=== PATIENT | female | born 1985 | race Caucasian/White ===

== ENCOUNTER 2019-01-11 10:22 | Emergency (ER) | payer BC ==
[2019-01-11 10:39] VITALS: BP 158/107
--- NOTE | 2019-01-11 10:52 | ED ---
Back Pain - HPI Summary HPI Summary: 33 year old female presents with back pain today after fall. States she slipped on ice. She landed on her right hip. States she has pain of her back and down her right leg. No history of back pain. No urinary symptoms. No loss of bowel or bladder. no saddle anaesthesia She denies any fever. She hasn't taking anything for pain. Has no medical conditions. - History of Current Complaint Chief Complaint: UCBackPain Stated Complaint: fell today know has backpain Time Seen by Provider: 01/11/19 10:39 Hx Last Menstrual Period: 01/11/19 Pain Intensity: 8 - Allergies/Home Medications Allergies/Adverse Reactions: Allergies Allergy/AdvReac Type Severity Reaction Status Date / Time doxycycline Allergy Hives Verified 01/11/19 10:31 sulfamethoxazole Allergy See Comment Verified 01/11/19 10:31 [From Bactrim] trimethoprim [From Bactrim] Allergy See Comment Verified 01/11/19 10:31 Home Medications: Home Medications Cariprazine HCl [Vraylar] 3 mg PO BEDTIME 01/11/19 [History Confirmed 01/11/19] Ibuprofen TAB* [Motrin TAB* 400 MG] 400 mg PO ONCE 01/11/19 [History Confirmed 01/11/19] LORazepam TAB(*) [Ativan 0.5 MG TAB (*)] 0.5 mg PO BEDTIME PRN 01/11/19 [ History Confirmed 01/11/19] Vortioxetine Hydrobromide [Brintellix] 20 mg PO BEDTIME 01/11/19 [History Confirmed 01/11/19] hydrOXYzine HCL TAB* [Atarax 10 MG TAB*] 10 mg PO BEDTIME 01/11/19 [History Confirmed 01/11/19] PMH/Surg Hx/FS Hx/Imm Hx Endocrine/Hematology History: Denies: Hx Diabetes, Hx Thyroid Disease Cardiovascular History: Denies: Hx Hypertension Respiratory History: Denies: Hx Asthma, Hx Chronic Obstructive Pulmonary Disease (COPD) GI History: Denies: Hx Ulcer Psychiatric History: Reports: Hx Anxiety - Surgical History Surgery Procedure, Year, and Place: [facility]. kidney stone removal - Immunization History Date of Tetanus Vaccine: unk Infectious Disease History: No Infectious Disease History: Denies: Hx Clostridium Difficile, Hx Hepatitis, Hx Human Immunodeficiency Virus (HIV), Hx of Known/Suspected MRSA, Hx Shingles, Hx Tuberculosis, Traveled Outside the [place] in Last 30 Days - Family History Known Family History: Negative: Renal Disease - Social History Alcohol Use: None Substance Use Type: Reports: None Smoking Status (MU): Never Smoked Tobacco Amount Used/How Often: 1/2 - 1 PPD Have You Smoked in the Last Year: No Review of Systems Negative: Fever Negative: Chest Pain Negative: Shortness Of Breath Positive: Myalgia - back pain All Other Systems Reviewed And Are Negative: Yes Physical Exam Triage Information Reviewed: Yes Vital Signs On Initial Exam: Initial Vitals Temp Pulse Resp BP Pulse Ox 99.2 F 86 20 158/107 100 01/11/19 10:34 01/11/19 10:34 01/11/19 10:34 01/11/19 10:34 01/11/19 10:34 Vital Signs Reviewed: Yes Appearance: Positive: Well-Appearing Skin: Positive: Warm, Dry Head/Face: Positive: Normal Head/Face Inspection Eyes: Positive: Normal, Conjunctiva Clear ENT: Positive: Pharynx normal Respiratory/Lung Sounds: Positive: Clear to Auscultation, Breath Sounds Present Cardiovascular: Positive: Normal, RRR Musculoskeletal: Positive: Strength/ROM Intact - back, Other - tenderness right side lower back, neg SLR, good pulses, nontender neck and thoracic back Neurological: Positive: Normal Psychiatric: Positive: Normal Diagnostics - Vital Signs Vital Signs Temp Pulse Resp BP Pulse Ox 01/11/19 10:34 99.2 F 86 20 158/107 100 - Laboratory Lab Statement: Any lab studies that have been ordered have been reviewed, and results considered in the medical decision making process. - Radiology back Radiology Interpretation Completed By: Radiologist Summary of Radiographic Findings: IMPRESSION: 1. Mild L5-S1 facet arthropathy. 2. Premature mild atherosclerotic calcification of the abdominal aorta. Back Pain Course/Dx - Course Course Of Treatment: 33 year old female presents with back pain today after fall. States she slipped on ice. She landed on her right hip. States she has pain of her back and down her right leg. No history of back pain. No urinary symptoms. No loss of bowel or bladder. no saddle anaesthesia She denies any fever. She hasn't taking anything for pain. Has no medical conditions. On exam tenderness over right lower back. Negative straight leg raise. X-ray shows no fracture. Explained leg pain is likely due to hitting the sciatic nerve. Told to use muscle relaxers and ibuprofen. Told to follow up primary about blood pressure as is elevated at this time and may need cholesterol checked with calcification of aorta. Patient understands agrees plan. - Diagnoses Differential Diagnosis/HQI/PQRI: Positive: Fracture, Strain, Sprain Provider Diagnoses: Back pain, Elevated blood pressure reading Discharge ED - Sign-Out/Discharge Documenting (check all that apply): Patient Departure All imaging exams completed and their final reports reviewed: Yes - Discharge Plan Condition: Good Disposition: HOME Prescriptions: Cyclobenzaprine TAB* [Flexeril 10 MG TAB*] 10 mg PO TID PRN #[id number] tab PRN Reason: Pain - Moderate Patient Education Materials: Back Pain (ED) Referrals: Geoff Lepe MD [Primary Care Provider] - Additional Instructions: Take muscle relaxers three times a day Use ibuprofen or Tylenol for pain every 6 hours ice/heat area, move as much as possible Follow up with primary within 5 days Return to ED if develop any new or worsening symptoms - Billing Disposition and Condition Condition: GOOD Disposition: Home
== END 2019-01-11 11:36 | disposition home or self-care (01) ==
LOC: UCEAST 10:22
DX: M54.9 Dorsalgia, unspecified (principal); R03.0 Elevated blood-pressure reading, without diagnosis of hypertension; I70.0 Atherosclerosis of aorta; M12.88 Other specific arthropathies, not elsewhere classified, other specified site; Z88.1 Allergy status to other antibiotic agents; Z88.2 Allergy status to sulfonamides
CPT/HCPCS: 72110; 99202; G0463

== ENCOUNTER 2019-02-19 10:30 | Emergency (ER) | payer BC ==
--- NOTE | 2019-02-19 10:55 | UC ---
Hypertension HPI - HPI Summary HPI Summary: The patient is a 33-year-old female who is sent here from her place of employment for evaluation of an elevated blood pressure. She states that she has not been feeling well since last night. She has had an intermittent left sided headache. She has never had a hemicranial headache before. The headache has been coming and going. It has not been overly severe. It is not the worst headache of her life. It can last up to 2 hours. Twice she has had very brief episodes of visual complaints. She states that for a few minutes it feels like she has floaters. She has had some nausea and some mild dizziness. She denies any history of migraines. Today at work she fell dizzy and went to the nurse. There she was found to have an elevated blood pressure. She has not had any chest pain or shortness of breath. She states that on her last few visits here as well as with her provider she has had elevated blood pressure. - History of Current Complaint Chief Complaint: UCGeneralIllness Stated Complaint: HIGH BLOOD PRESSURE Time Seen by Provider: 02/19/19 10:54 Hx Obtained From: Patient Hx Last Menstrual Period: 01/11/19 Onset/Duration: Gradual Onset Timing: Constant Reported Blood Pressure Prior To Arrival:: 181/121 Aggravating Factor(s): Nothing Associated Signs And Symptoms: Positive: Negative, Vision Changes - mild, Headaches - mild Current Medications: Other - none - Risk Factors Cardiac Risk Factors: Negative - Allergies/Home Medications Allergies/Adverse Reactions: Allergies Allergy/AdvReac Type Severity Reaction Status Date / Time doxycycline Allergy Hives Verified 02/19/19 10:39 sulfamethoxazole Allergy See Comment Verified 02/19/19 10:39 [From Bactrim] trimethoprim [From Bactrim] Allergy See Comment Verified 02/19/19 10:39 PMH/Surg Hx/FS Hx/Imm Hx Previously Healthy: Yes Cardiovascular History: Hypertension - not treated - Surgical History Surgical History: Yes Surgery Procedure, Year, and Place: [facility]. kidney stone removal - Family History Known Family History: Positive: Hypertension, Diabetes, Other - + kidney stones Negative: Renal Disease - Social History Alcohol Use: None Substance Use Type: None Smoking Status (MU): Light Every Day Tobacco Smoker Amount Used/How Often: 1/2 - 1 PPD Have You Smoked in the Last Year: No Household Exposure Type: Cigarettes Cessation Counseling: Patient Advised to Stop - Immunization History Most Recent Influenza Vaccination: 01/15/14 Most Recent Tetanus Shot: 01/15/14 Most Recent Pneumonia Vaccination: unknown Review of Systems All Other Systems Reviewed And Are Negative: Yes Constitutional: Positive: Negative Skin: Positive: Negative Eyes: Positive: Negative ENT: Positive: Negative Respiratory: Positive: Negative Cardiovascular: Positive: Negative Gastrointestinal: Positive: Negative, Other - nausea resolved Motor: Positive: Negative Neurovascular: Positive: Negative Musculoskeletal: Positive: Negative Neurological: Positive: Headache - mild left hemicranial Psychological: Positive: Negative Physical Exam Triage Information Reviewed: Yes Appearance: Well-Appearing, No Pain Distress, Well-Nourished Vital Signs: Initial Vital Signs Temp 98.6 F 02/19/19 10:37 Pulse 106 02/19/19 10:37 Resp 20 02/19/19 10:37 BP 189/129 02/19/19 10:37 Pulse Ox 96 02/19/19 10:37 Vital Signs Reviewed: Yes Eyes: Positive: Conjunctiva Clear, Other: - eomi/perrl ENT: Positive: Hearing grossly normal. Negative: Nasal congestion, Nasal drainage, Trismus, Muffled voice, Hoarse voice Neck: Positive: Supple Respiratory: Positive: Lungs clear, Normal breath sounds, No respiratory distress, No accessory muscle use Cardiovascular: Positive: RRR, No Murmur Musculoskeletal: Positive: ROM Intact, No Edema Neurological: Positive: Alert, Other: - cn 2-12 intact, strenght 5/5, normal gait, (-) rhomberg Psychological Exam: Normal Skin Exam: Normal Diagnostics - Radiology No standard instances Radiology Interpretation Completed By: Radiologist Summary of Radiographic Findings: CT brain negative - EKG Cardiac Rate: NL Cardiac Rhythm: Sinus: Normal Ectopy: None ST Segment: Normal Re-Evaluation - Re-Evaluation First Eval Re-Evaluation Time: 12:05 Change: Improved - no PACHECO, no dizziness Hypertension Course/Dx - Differential Dx/Diagnosis Provider Diagnosis: Hypertension, Headache, Smoker Discharge ED - Sign-Out/Discharge Documenting (check all that apply): Patient Departure All imaging exams completed and their final reports reviewed: Yes - Discharge Plan Condition: Stable Disposition: HOME Patient Education Materials: Hypertension (ED), Acute Headache (ED) Referrals: Geoff Lepe MD [Primary Care Provider] - 1 Week (recheck in 1-2 weeks) Additional Instructions: rest tylenol recheck for new or worsening symptoms - Billing Disposition and Condition Condition: STABLE Disposition: Home
[2019-02-19 11:38] VITALS: BP 149/82
== END 2019-02-19 12:17 | disposition home or self-care (01) ==
LOC: UCEAST 10:30
DX: I10 Essential (primary) hypertension (principal); R51 Headache; F17.210 Nicotine dependence, cigarettes, uncomplicated; Z88.1 Allergy status to other antibiotic agents; Z88.2 Allergy status to sulfonamides
CPT/HCPCS: 70450; 81003; 87077; 87086; 93005; 99212; G0463

== ENCOUNTER 2020-02-17 05:34 | Inpatient (IN) ==
[2020-02-17] MEDS ORDERED: Buffered Lidocaine 1% SYRIN 1 ml INTRADERM ONE (06:00)
[2020-02-17] MEDS ORDERED: Lactated Ringers 1000 ml BAG 1,000 ML IV SCH (06:00)
[2020-02-17] MEDS ORDERED: ceFAZolin 1 GM ADVAN 1 GM ADDV.VIAL IVPB ONE (06:17)
[2020-02-17] MEDS ORDERED: ceFAZolin 2 GM PREMIX 2 GM/50 ML BAG ONE (06:17)
[2020-02-17] MEDS ORDERED: fentaNYL 250 mcg/5 ml 50 MCG/ML 5 ml VIAL (250 MCG) ONE (07:02)
[2020-02-17] MEDS ORDERED: Midazolam 2 mg/2 ml VIAL 1 mg/ml 2 ml VIAL (2 mg) ONE (07:02)
[2020-02-17] MEDS ORDERED: Rocuronium 50 mg VIAL 10 mg/ml 5 ml VIAL (50 mg) ONE (07:02)
[2020-02-17] MEDS ORDERED: Lidocaine 2% PF 5 ML VIAL ONE (07:07)
[2020-02-17] MEDS ORDERED: Propofol 10 MG/ML 20 ML BTL ONE (07:08)
[2020-02-17] MEDS ORDERED: Sugammadex 500 MG/5 ML 5 ml VIAL IV PUSH ONE (07:08)
[2020-02-17] MEDS ORDERED: Ondansetron 4 mg VIAL 2 MG/ML 2 ml VIAL ONE (07:08)
[2020-02-17] MEDS ORDERED: Dexamethasone IV 4 MG/ML VIAL 1 ml VIAL ONE ×2 (07:08→08:27)
[2020-02-17] MEDS ORDERED: Bupivacaine 0.25% SDV 30 ML ONE (07:10)
[2020-02-17] MEDS ORDERED: Methylene Blue 0.5 % 50 MG/10 ML AMP IV ONE (07:10)
[2020-02-17] MEDS ORDERED: Naloxone 0.4 mg VIAL 0.4 mg/ml 1 ml VIAL IV PRN (08:34)
[2020-02-17] MEDS ORDERED: DiMENhydriNATE IV 50 mg/ml 1 ml VIAL IV PUSH PRN (08:34)
[2020-02-17] MEDS ORDERED: HYDROmorphone 1 MG/1 ML SYRINGE ONE ×2 (08:53→09:38)
[2020-02-17] MEDS ORDERED: Acetaminophen IV 1 GM/100ML 100 ML ONE (10:02)
[2020-02-17] MEDS ORDERED: Ondansetron 4 mg VIAL 2 MG/ML 2 ml VIAL IV PRN (10:19)
[2020-02-17] MEDS ORDERED: diPHENhydraMINE IV 50 MG/ML 1 ml VIAL (BENADRYL) SLOW PUSH PRN (10:26)
[2020-02-17] MEDS ORDERED: HYDROmorphone 0.5 MG/0.5 ML SYRINGE IV SLOW PU PRN (10:26)
[2020-02-17] MEDS ORDERED: HYDROmorphone 1 MG/1 ML SYRINGE IV SLOW PU PRN (10:26)
[2020-02-17] MEDS ORDERED: HYDROcodone/ACET. 7.5/325 LIQ 15 ML UDC PO PRN (10:26)
[2020-02-17] MEDS ORDERED: fentaNYL 100 mcg/2 ml 50 MCG/ML VIAL ONE (10:35)
[2020-02-17] MEDS ORDERED: DiMENhydriNATE IV 50 mg/ml 1 ml VIAL ONE (10:36)
[2020-02-17] MEDS: fentaNYL 100 mcg/2 ml 50 MCG/ML VIAL IV PRN ×2 (10:39→10:44)
[2020-02-17] MEDS ORDERED: Labetalol IV 5 MG/ML 20 ml VIAL ONE (10:47)
[2020-02-17] MEDS ORDERED: Labetalol IV 5 MG/ML 20 ml VIAL IV PUSH ONE ×2 (10:50→11:23)
[2020-02-17] MEDS: Lactated Ringers 1000 ml BAG 1,000 ML IV SCH ×2 (12:18→20:07)
[2020-02-17] MEDS: Heparin 5000 UNITS/ML 1 mL VIAL SUBCUT SCH ×2 (14:41→23:08)
[2020-02-17] MEDS: Famotidine IV 10 MG/ML 2 ml VIAL (20 mg) IV SLOW PU SCH (20:09)
[2020-02-18] MEDS: Lactated Ringers 1000 ml BAG 1,000 ML IV SCH (05:27)
[2020-02-18] MEDS: Heparin 5000 UNITS/ML 1 mL VIAL SUBCUT SCH ×2 (05:31→13:48)
[2020-02-18] MEDS: Famotidine IV 10 MG/ML 2 ml VIAL (20 mg) IV SLOW PU SCH (10:46)
[2020-02-18] MEDS ORDERED: D5W 1/2 NS KCl 20 meq 1000 ml 1,000 ML IV SCH (11:00)
[2020-02-18 16:35] VITALS: BP 133/79
== END 2020-02-18 16:50 | disposition home or self-care (01) | DRG 403 ==
LOC: AA 05:34 → SSU 12:13
PROVIDERS: ADMIT Surgery; ATTEND Surgery